=== PATIENT | female | born 1995 | race Caucasian/White ===

== ENCOUNTER 2016-09-22 12:42 | Emergency (ER) | payer BC ==
[~2016-09-22] VITALS: Ht 162.6 cm; Wt 79.4 kg
[~2016-09-22 12:42] MED LIST: ESCITALOPRAM OX20 MG PO; JUNEL FE 1/21 TABLET PO
[2016-09-22 15:44] LABS: HEMATOCRIT 37.1 % (36.0-46.0); MCH 31.1 PG (29.0-34.0); MCHC 33.2 G/DL (30.0-36.0); MCV 93.7 FL (83-99); NRBC (%) 0.1 /100 WBC (0-0); RBC DIS.WIDTH-CV 13.1 % (11.8-14.6); RED BLOOD COUNT 3.96 M/uL (3.80-5.20); WHITE BLOOD COUNT 15.2 K/uL (4.1-10.2)
[2016-09-22 15:53] LABS: CHLORIDE 109 mEq/L (99-109); POTASSIUM 4.4 mEq/L (3.7-5.4); SODIUM 140 mEq/L (136-147)
[2016-09-22 15:55] LABS: GLUCOSE 84 mg/dL (70-99)
[2016-09-22 15:57] LABS: ANION GAP 10 MEQ/L (2-14); TOTAL BILIRUBIN 0.8 mg/dL (0.0-1.0)
[2016-09-22 15:59] LABS: ALKALINE PHOSPHATASE 160 IU/L (3-129); GFR ESTIMATE (CALCULATED) > 59 mL/min/
[2016-09-22 16:00] LABS: UREA NITROGEN (BUN) 5 mg/dL (9-23)
[2016-09-22 16:09] LABS: QUANTITATIVE HCG < 4.0 MIU/ML
[2016-09-22 16:50] LABS: MEAN PLAT.VOLUME 10.8 uM^3 (9.5-12.4); PLATELET COUNT 211 K/uL (156-360)
[2016-09-22 17:01] LABS: MONOSPOT (MONONUCLEOSIS SEROL) POSITIVE
[2016-09-22 17:02] LABS: INTERNAL CONTROL VALID? YES
[2016-09-22 17:07] LABS: BASOPHIL COUNT 0.1 K/uL (0-0.1); EOSINOPHIL (%) 0.1 % (0-5); IMMATURE GRANULOCYTE (%) 0.2 % (0.0-0.7); INSTRUMENT ABS NEUTROPHIL CT 3.3 K/uL; LYMPHOCYTE COUNT 11.1 K/uL (1.0-2.8); MONOCYTE (%) 4.5 % (3-12); MONOCYTE COUNT 0.7 K/uL (0-0.8); NEUTROPHIL (%) 21.5 % (45-76); NEUTROPHIL COUNT 3.3 K/uL (1.8-6.4); PLAT.SUFFICIENCY ADEQUATE
[2016-09-22] MEDS ORDERED: ZOFRAN ODT4 MG PO (17:24)
[2016-09-22] MEDS ORDERED: PREDNISONE20 MG PO (17:25)
[2016-09-22 18:32] VITALS: BP 119/72
== END 2016-09-22 18:35 | disposition home or self-care (01) ==
LOC: EME 12:42
PROVIDERS: Emergency Medicine
DX: B27.90 Infectious mononucleosis, unspecified without complication (principal); J01.00 Acute maxillary sinusitis, unspecified; D72.829 Elevated white blood cell count, unspecified; R79.89 Other specified abnormal findings of blood chemistry; J45.909 Unspecified asthma, uncomplicated
CPT/HCPCS: 70490; 80053; 84702; 85025; 86308; 87651 90; 99281; 99285; J1100